=== PATIENT | male | born 2000 | race Caucasian/White ===

== ENCOUNTER 2024-07-25 14:07 | Emergency (ER) | payer OTHER, SELFPAY ==
[2024-07-25 14:09] VITALS: BP 152/99
[2024-07-25 15:04] VITALS: BMI 22.5
--- NOTE | 2024-07-25 15:47 | ED.GENMED ---
History of Present Illness
General
Chief Complaint: Dental Problem
Source: patient
Time Seen by Provider: 07/25/24 15:29
History of Present Illness
History of Present Illness:
24-year-old male presents with right lower dental pain. He admits to globally poor dentition has had dental issues for quite some time but it recently swelled and cause more pain to the right lower jaw. He denies trouble swallowing or breathing.
No fever neck pain or chest pain. He currently does not have a dentist. He has had this happen before. No other complaints
Past History
Past History
ED Past Medical History: Psychiatric (Depression, Overdose); Negative Asthma, HTN, Hypercholesterolemia or NIDDM
ED Past Surgical History: Other (Right foot surgery)
Social History
Tobacco: Smoker
Alcohol: None
Drug: Other
Personal: Single
Living: with family
Employment: Employed (Auto Service Mechanic)
Phy Exam
Physical Exam
Physical Exam:
General: Well-appearing male no acute respiratory distress
HEENT: Normocephalic. There is a swelling noted of the right mandible in the area of the chin on the right side. There is globally tissue. There is gingival tissue thickening on the buccal side. The floor of the mouth is soft. The neck is
supple no asymmetric swelling of the posterior pharynx. No trismus or drooling
Course
Orders/Labs/Results
Orders:
Orders
07/25/24 15:47
Penicillin V Potassium [Pen Vk] 500 mg PO NOW STA
Vital Signs
Initial and Last Documented VS:
Initial Vital Signs
Temp Pulse Resp BP Pulse Ox
98.2 F 90 20 152/99 99
07/25/24 14:09 07/25/24 14:09 07/25/24 14:09 07/25/24 14:09 07/25/24 14:09
Last Documented Vital Signs
Temp Pulse Resp BP Pulse Ox
98.2 F 90 20 152/99 99
07/25/24 14:09 07/25/24 14:09 07/25/24 14:09 07/25/24 14:09 07/25/24 14:09
MDM/Problems Addressed
Differential Diagnosis Includes:
Dental abscess. Nothing drainable at this time. Recommend warm salt water rinses and follow-up with dentist. Will start on penicillin.
*Pulse Oximetry
SaO2: 99
Oxygen Mode of Delivery: Room air
*Critical Care Note
Total Time (30-74mins, 75-104mins- exclusive of procedures): Not Applicable
ED Attending Note
-
Portions of this chart may have been created with voice recognition software.� Occasional wrong word or��sound alike� substitutions may have occurred due to the inherent limitations of voice recognition software.
Discharge Plan
Departure
Patient Disposition: Home (Routine Discharge)
Date of Disposition: 07/25/24
Time of Disposition: 15:49
Patient with high blood pressure during this ER visit?: No
Discharge Problem:
Dental abscess
Instructions: Tooth Abscess (DC)
Prescriptions:
New
penicillin V potassium 500 mg tablet
500 mg PO QID Qty: 28 0RF
No Action
penicillin V potassium 500 MG tablet
500 mg PO TID Qty: 20 0RF
Referrals:
UNKNOWN - PT DOES,NOT KNOW [Family Provider]
Activity Restrictions/Additional Instructions:
Continue with warm salt water rinses. Use ibuprofen or Tylenol for pain. Use antibiotic as directed. Follow-up with dentist. Return if worse
Interventions
Interventions:
*Risk Screen - Suicide Last Done: 07/25/24 14:12
*General Assessment Last Done: 07/25/24 14:09
*Neglect/Abuse Screening Last Done: 07/25/24 14:09
*ED- Fall Risk Assessment Last Done: 07/25/24 15:04
*ED COVID-19 Vaccine History Last Done: 07/25/24 15:04
Discharge Date and Time
Print Language: SETS[place]
[2024-07-25] MEDS: PEN VK 500 MG PO (16:00)
== END 2024-07-25 16:03 | disposition home or self-care (01) ==
LOC: EMR 14:07
PROVIDERS: EMERGENCY PHYSICIAN Student in an Organized Health Care Education/Training Program
DX: K04.7 Periapical abscess without sinus (principal); F17.200 Nicotine dependence, unspecified, uncomplicated
CPT/HCPCS: 99283

== ENCOUNTER 2024-12-13 19:18 | Emergency (ER) | payer OTHER, SELFPAY ==
[2024-12-13 19:22] VITALS: BP 168/89
--- NOTE | 2024-12-13 19:40 | ED.GENMED ---
History of Present Illness
General
Chief Complaint: Musculo-Skeletal Complaint
Source: patient
Exam Limitations: none
Time Seen by Provider: 12/13/24 19:32
History of Present Illness
History of Present Illness:
24yo male presenting with his significant other for evaluation of left foot pain. Patient states he stomped on his left foot as hard as he could yesterday. He has been having persistent pain in his left heal since then and is having difficulty
with ambulation. No paresthesias.
Past History
Past History
ED Past Medical History: Psychiatric (Depression, Overdose); Negative Asthma, HTN, Hypercholesterolemia or NIDDM
ED Past Surgical History: Other (Right foot surgery)
Social History
Tobacco: Smoker
Alcohol: None
Drug: Other
Personal: Single
Living: with family
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
Phy Exam
General Physical Exam
General Presentation: well appearing and no apparent distress
General Skin: warm and dry
General Habitus: normal
General Mental: alert
ENT Exam
ENT Exam: normocephalic
Pulmonary Exam
Pulmonary Exam: no respiratory distress
Neurological Exam
Neurological Exam: alert
[place] Coma Scale
Eye Opening: Spontaneous
Verbal Response: Oriented
Motor Response: Obeys Commands
GCS Total Score: 15
Musculoskeletal Exam
Musculoskeletal Exam: other (L foot: +Mild tenderness to calcaneus. No significant soft tissue swelling or skin changes. No tenderness in ankle. 2+ DP pulse and sensation intact. )
Skin Exam
Skin Exam: normal color and warm/dry
Psychiatric Exam
Psychiatric Exam: normal mood/affect
Course
Orders/Labs/Results
Orders:
Orders
12/13/24 19:38
CR Foot - Left Min 3 Views Urgent
Comment:
Reason For Exam: injury
Calcaneus, Left 2 View [CR Heel/os Calcis - Left 2 Vw*] Urgent
Comment:
Reason For Exam: injury
Vital Signs
Initial and Last Documented VS:
Initial Vital Signs
Temp Pulse Resp BP Pulse Ox
98.0 F 97 20 168/89 98
12/13/24 19:22 12/13/24 19:22 12/13/24 19:22 12/13/24 19:22 12/13/24 19:22
Last Documented Vital Signs
Temp Pulse Resp BP Pulse Ox
98.0 F 97 20 168/89 98
12/13/24 19:22 12/13/24 19:22 12/13/24 20:15 12/13/24 19:22 12/13/24 19:41
MDM/Problems Addressed
Differential Diagnosis Includes:
24yoM here with L heel pain after an injury yesterday. Mild tenderness on exam without deformity/swelling. LLE is neurovascularly intact. Differential diagnosis includes: sprain, soft tissue injury, fracture
X-rays of L foot and calcaneus obtained which show a questionable cortical disruption of the plantar aspect of the anterior calcaneus, probable prominent nutrient channel but acute fracture cannot be excluded. CT added for completeness. Case was
initially signed out to Luisa AMADO pending CT results but patient eloped from department prior to CT.
*Pulse Oximetry
SaO2: 98
Oxygen Mode of Delivery: Room air
Patient hypoxic: no
*Critical Care Note
Total Time (30-74mins, 75-104mins- exclusive of procedures): Not Applicable
ED Attending Note
-
Portions of this chart may have been created with voice recognition software.� Occasional wrong word or��sound alike� substitutions may have occurred due to the inherent limitations of voice recognition software.
Discharge Plan
Departure
Patient Disposition: Elopement
Discharge Problem:
Injury of left foot
Prescriptions:
No Action
penicillin V potassium 500 MG tablet
500 mg PO TID Qty: 20 0RF
penicillin V potassium 500 mg tablet
500 mg PO QID Qty: 28 0RF
Referrals:
UNKNOWN,NO INTERVIEW [Family Provider]
Interventions
Interventions:
*Risk Screen - Suicide Last Done: 12/13/24 19:41
*General Assessment Last Done: 12/13/24 19:22
*Neglect/Abuse Screening Last Done: 12/13/24 19:41
*ED- Fall Risk Assessment Last Done: 12/13/24 20:15
*ED COVID-19 Vaccine History Last Done: 12/13/24 20:15
*ED Influenza Vaccine History Last Done: 12/13/24 20:15
*Nursing Disposition Last Done: 12/13/24 21:35
ED-Musculoskeletal Assessment Last Done: 12/13/24 20:14
Discharge Date and Time
Discharge Date/Time: 12/13/24 21:36
Print Language: WELSH
== END 2024-12-13 21:36 | disposition left against medical advice (07) ==
LOC: EMR 19:18
PROVIDERS: EMERGENCY PHYSICIAN Emergency Medicine
DX: S99.922A Unspecified injury of left foot, initial encounter (principal); X58.XXXA Exposure to other specified factors, initial encounter; F17.200 Nicotine dependence, unspecified, uncomplicated; Z53.29 Procedure and treatment not carried out because of patient's decision for other reasons
CPT/HCPCS: 99283; 73630; 73650